=== PATIENT | male | born 1960 | race Caucasian/White ===

== ENCOUNTER → 2023-03-12 | Outpatient (CLI) | payer MEDICARE, OTHER ==
--- NOTE | 2023-03-12 08:22 | CTL ---
EXAMINATION TYPE: CT Low Dose Lung DATE OF EXAM: 03/12/2023 7:48 AM CLINICAL INDICATION:Male, 62 years old with history of Z87.891 personal hx tobacco use F17.210; Perso nal history of tobacco use and cough. , history of tobacco use. COMPARISON: None. TECHNIQUE: Multiple axial non-contrast scans were obtained from approximately the lung apices through the upper abdomen. Coronal and sagittal reformatted images were obtained. Low dose technique was uti lized. CT DLP: 94.7 mGycm, Automated exposure control for dose reduction was used. CT Contrast: Contrast used: None Oral contrast used: None FINDINGS: ======== Lack of intravenous contrast and low dose technique limits the evaluation of the vascular and soft ti ssue structures. LUNGS: No evidence of pulmonary fibrosis. No evidence of focal consolidation, pneumothorax or pleural effusion. Azygous fissure noted. Nodules: RUL: None. RML: None. RLL: None. ROSANGELA: None. LLL: None. AIRWAY: Patent and unremarkable. HEART: Size within normal limits. Ixab-oh-oarcqyit ossifications of the coronary arteries. MEDIASTINUM: No gross evidence of adenopathy. VASCULATURE: No aortic aneurysm. MUSCULOSKELETAL: Mild disc degeneration changes are present throughout the thoracolumbar spine. Remot e right posterior rib fracture involving rib 9. SOFT TISSUES/LYMPH NODES: Unremarkable. LOWER NECK: No significant findings. UPPER ABDOMEN: Diffuse low-attenuation to the liver parenchyma. IMPRESSION: 1. No pulmonary nodules. 2. Mild to moderate coronary artery atherosclerosis. CT LUNG RAD AND CT CHEST RECOMMENDATION: Lung-Rad 1 Negative: Continue annual screening with LDCT in 12 months. S Modifier (other clinically significant findings): None Recommend smoking cessation (if current smoker), or continuation of smoking cessation (if prior smoke r). Annual screening for lung cancer with low-dose computed tomography is recommended in adults ages 55 to 77 years who have a 30 pack-year smoking history and currently smoke or have quit within the pa st 15 years. Screening should be discontinued once a person has not smoked for 15 years or develops a health problem that substantially limits life expectancy or the ability or willingness to have curat diego lung surgery. Lung rads 2021 [email or web address]
== END | disposition home or self-care (01) ==
LOC: RADCTMAIN 07:26
PROVIDERS: ATTEND Family Medicine
DX: Z12.2 Encounter for screening for malignant neoplasm of respiratory organs (principal); I25.10 Atherosclerotic heart disease of native coronary artery without angina pectoris; F17.210 Nicotine dependence, cigarettes, uncomplicated
CPT/HCPCS: 71271

== ENCOUNTER → 2023-10-01 | Outpatient (CLI) | payer MEDICARE, OTHER ==
--- NOTE | 2023-10-01 17:14 | US ---
EXAMINATION TYPE: US st tissue neck DATE OF EXAM: 10/01/2023 COMPARISON: EXAMINATION TYPE: US thyroid st tissue head/neck DATE OF EXAM: 10/01/2023 COMPARISON: NONE CLINICAL INDICATION: Male, 63 years old with history of R59.0 CERVICAL LYMPHADENOPATHY; Lump in neck bilateral sides. TECHNIQUE: Scanning along the bilateral soft tissues of the neck. FINDINGS: Educational Psychology Teacher notes: Hypoechoic area seen right neck .8 x .4 x .6 cm. IMPRESSION: The logistics planner was only able to find a solitary prominent but nonenlarged 8 mm lymph no de along the right side of the neck. Follow-up as clinically indicated.
== END | disposition home or self-care (01) ==
LOC: RADUSWWP 14:12
PROVIDERS: ATTEND Internal Medicine
DX: R59.0 Localized enlarged lymph nodes (principal)
CPT/HCPCS: 76536